=== PATIENT | female | born 1950 | race Caucasian/White ===

== ENCOUNTER 2017-09-22 04:53 | Emergency (ER) | payer OTHER ==
[~2017-09-22] VITALS: Ht 165.1 cm; Wt 64.3 kg
[2017-09-22 05:02] VITALS: Ht 165.1 cm; Wt 64.3 kg
[2017-09-22 05:12] VITALS: O2SAT 94
[2017-09-22] MEDS ORDERED: SODIUM CHLORIDE 0.9% 1000ML 1,000 ML IV STA (05:56)
--- NOTE | 2017-09-22 05:58 | EMERGENCY ROOM VISIT NOTE ---
History Report prepared by Hina: Martín Anderson Under the Supervision of: Dr. Esmer Gordon D.O. First contact with patient: 05:33 Chief Complaint: SYNCOPE (NEAR SYNCOPE) Stated Complaint: PASSED OUT IN KITCHED AT 3 History of Present Illness The patient is a 67 year old female who presents to the Emergency Room with complaints of a resolved syncopal episode that occurred 2.5 hours ago. The patient states she was experiencing nausea, diarrhea, and loss of appetite and decreased fluid intake all day yesterday. She reports she did not have blood in her stool. The patient notes she woke up to get a drink of water in the kitchen and lost consciousness. She states she woke up on the floor and was incontinent of her stool. The patient reports she does not know if she hit her head but she has no complaints of pain. She notes this has happened before, and she was told it was from a viral illness. The patient states she has a history of anxiety. She reports she drinks two beers a day and did drink them yesterday. The patient denies a history of a seizure, heart problems, lightheadedness, abdominal pain, congestion, headaches, and fevers. Source of History: patient Onset: 2.5 hours ago Quality: other (syncope) Timing: resolved Associated Symptoms: + LOC, + nausea, + diarrhea, No fevers, No headache, No abdominal pain Note: Associated symptoms: loss of appetite and fluid intake, incontinence of stool Denies: blood in stool, lightheadedness, congestion Review of Systems See HPI for pertinent positives & negatives. A total of 10 systems reviewed and were otherwise negative. Past Medical & Surgical Medical Problems: (1) Anxiety (2) Stomach problems Family History Diabetes mellitus Gallbladder disease Heart disease Hypertension Social History Smoking Status: Never Smoker Alcohol Use: occasionally Marital Status: Housing Status: lives alone Occupation Status: retired Current/Historical Medications Scheduled Venlafaxine Hcl (Effexor Xr), 75 MG PO DAILY Allergies Coded Allergies: Erythromycin (Unverified Allergy, Unknown, nausea, 09/22/17) Azithromycin (Verified Adverse Reaction, Mild, nausea, 09/22/17) Physical Exam Vital Signs Date Time Temp Pulse Resp B/P (MAP) Pulse Ox O2 Delivery O2 Flow Rate FiO2 09/22/17 07:30 37.2 74 16 109/72 96 Room Air 09/22/17 06:08 72 18 96 Room Air 09/22/17 06:01 107/68 09/22/17 05:53 68 15 93 09/22/17 05:38 70 18 92 09/22/17 05:31 110/58 09/22/17 05:29 68 09/22/17 05:25 113/63 09/22/17 05:23 70 25 91 Room Air 09/22/17 05:13 98/67 09/22/17 05:12 94 Room Air 09/22/17 05:12 73 112/64 94 76 121/71 98/67 09/22/17 05:02 37.6 79 18 90/62 93 Room Air Physical Exam HEENT: Head - normocephalic and atraumatic Pupils are equal, round, and reactive to light. Extraocular eye muscles are intact, and sclera are anicteric. Nose - moist nasal mucosa without discharge. Mouth - moist buccal mucosa. Oropharynx is nonerythematous and there is no tonsillar exudate or edema noted. Neck: Supple; no JVD, nuchal rigidity, cervical lymphadenopathy. Heart: Regular rate and rhythm. There is a normal S1 and S2 with no murmurs, clicks, or gallops appreciated. Lungs: Clear to auscultation bilaterally with no wheezes, rales, or rhonchi. Abdomen: Soft, completely nontender, nondistended, with good bowel sounds. There are no palpable pulsatile masses or hepatosplenomegaly. There is no guarding, rigidity, or rebound noted. Extremities: No evidence of cyanosis, clubbing, or edema. There are easily palpable peripheral pulses. Skin: warm and dry with good turgor and no rashes. Medical Decision & Procedures ER Provider Diagnostic Interpretation: X-ray results as stated below per interpretation by me and the radiologist: CHEST ONE VIEW PORTABLE HISTORY: syncope COMPARISON: None. FINDINGS: A few bibasilar linear densities. The lungs are otherwise clear. No pleural effusions. No pneumothorax. The heart is normal in size. No rib fractures. IMPRESSION: A few bibasilar linear densities. These are nonspecific but favor subsegmental atelectasis or scarring. Electronically signed by: Steve Mathis M.D. 09/22/2017 7:33 AM Dictated Date/Time: 09/22/2017 7:31 AM Laboratory Results 09/22/17 05:20 Red Blood Count 4.14, Mean Corpuscular Volume 98.1, Mean Corpuscular Hemoglobin 33.3, Mean Corpuscular Hemoglobin Concent 34.0, Mean Platelet Volume 9.1, Neutrophils (%) (Auto) 70.7, Lymphocytes (%) (Auto) 12.4, Monocytes (%) (Auto) 15.3, Eosinophils (%) (Auto) 1.3, Basophils (%) (Auto) 0.3, Neutrophils # (Auto ) 2.73, Lymphocytes # (Auto) 0.48, Monocytes # (Auto) 0.59, Eosinophils # (Auto ) 0.05, Basophils # (Auto) 0.01 09/22/17 05:20 Test 09/22/17 05:20 09/22/17 07:00 White Blood Count 3.86 K/uL (4.8-10.8) Red Blood Count 4.14 M/uL (4.2-5.4) Hemoglobin 13.8 g/dL (12.0-16.0) Hematocrit 40.6 % (37-47) Mean Corpuscular Volume 98.1 fL (80-100) Mean Corpuscular Hemoglobin 33.3 pg (25-34) Mean Corpuscular Hemoglobin Concent 34.0 g/dl (32-36) Platelet Count 223 K/uL (130-400) Mean Platelet Volume 9.1 fL (7.4-10.4) Neutrophils (%) (Auto) 70.7 % Lymphocytes (%) (Auto) 12.4 % Monocytes (%) (Auto) 15.3 % Eosinophils (%) (Auto) 1.3 % Basophils (%) (Auto) 0.3 % Neutrophils # (Auto) 2.73 K/uL (1.4-6.5) Lymphocytes # (Auto) 0.48 K/uL (1.2-3.4) Monocytes # (Auto) 0.59 K/uL (0.11-0.59) Eosinophils # (Auto) 0.05 K/uL (0-0.5) Basophils # (Auto) 0.01 K/uL (0-0.2) RDW Standard Deviation 47.2 fL (36.4-46.3) RDW Coefficient of Variation 13.1 % (11.5-14.5) Immature Granulocyte % (Auto) 0.0 % Immature Granulocyte # (Auto) 0.00 K/uL (0.00-0.02) Anion Gap 6.0 mmol/L (3-11) Est Creatinine Clear Calc Drug Dose 62.3 ml/min Estimated GFR () 88.3 Estimated GFR (Non- 76.2 BUN/Creatinine Ratio 16.2 (10-20) Calcium Level 8.9 mg/dl (8.5-10.1) Total Bilirubin 1.4 mg/dl (0.2-1) Direct Bilirubin 0.3 mg/dl (0-0.2) Aspartate Amino Transf (AST/SGOT) 17 U/L (15-37) Alanine Aminotransferase (ALT/SGPT) 27 U/L (12-78) Alkaline Phosphatase 97 U/L (45-117) Troponin I < 0.015 ng/ml (0-0.045) Total Protein 7.3 gm/dl (6.4-8.2) Albumin 3.8 gm/dl (3.4-5.0) Lipase 79 U/L (73-393) Urine Color YELLOW Urine Appearance CLEAR (CLEAR) Urine pH 5.5 (4.5-7.5) Urine Specific [place] 1.008 (1.000-1.030) Urine Protein NEG (NEG) Urine Glucose (UA) NEG (NEG) Urine Ketones TRACE (NEG) Urine Occult Blood TRACE (NEG) Urine Nitrite NEG (NEG) Urine Bilirubin NEG (NEG) Urine Urobilinogen NEG (NEG) Urine Leukocyte Esterase NEG (NEG) Urine WBC (Auto) 0 /hpf (0-5) Urine RBC (Auto) 0-4 /hpf (0-4) Urine Hyaline Casts (Auto) 0 /lpf (0-5) Urine Epithelial Cells (Auto) 0-5 /lpf (0-5) Urine Bacteria (Auto) NEG (NEG) Laboratory results per my review. Medications Administered Medications (Trade) Dose Ordered Sig/Archie Route Start Time Stop Time Status Last Admin Dose Admin Sodium Chloride 1,000 ml @ 999 mls/hr Q1H1M STAT IV 09/22/17 05:56 09/22/17 06:56 DC 09/22/17 06:03 999 MLS/HR Procedure 0556: Ordered Sodium Chloride 1000 ml @ 999 mls/hr IV. ECG Per My Interpretation Indication: syncope Rate (beats per minute): 68 Rhythm: normal sinus Findings: no acute ischemic change, no ectopy ED Course 0531: Past medical records reviewed. The patient was evaluated in room B05 by the medical student under my supervision. 0556: Ordered Sodium Chloride 1000 ml @ 999 mls/hr IV. 0559: The patient was evaluated in room B05 by me. A complete history and physical examination were performed. Nursing notes were reviewed. IV lock was established and labs were drawn as above. A 12-lead EKG was obtained as described above. The patient was essentially symptom-free on my exam. 0701: Upon reevaluation, patient is felling well. She ambulated, ate, and drank without difficulty. I discussed findings and results with her. She verbalized agreement of the treatment plan. The patient was discharged home. Medical Decision The patient is a 67 year old female who presents to the ED after a syncopal episode. Differential diagnosis includes dehydration, cardiac dysrhythmia, vasovagal syncope, electrolyte imbalance, orthostasis. Lab results show: WBC of 3.8, stable H&H, glucose of 110, normal lipase, normal renal function, total bilirubin of 1.4, direct bilirubin of 0.3, normal transaminases. This is a 67-year-old female patient had a syncopal event at home. The patient has been suffering from an acute diarrheal illness over the past 12 hours. The patient shows no evidence of orthostasis here in the emergency department. She is symptom-free at the time of my evaluation. She has had a previous episode of syncope associated with a another diarrheal illness while she was on a cruise ship years ago. The patient is able to eat and drink without difficulty. She is feeling better at the time of discharge. I have asked her to rest and take a bland diet over the next couple of days. She will need to increase her fluid intake. If she has any further episodes of lightheadedness or syncope, she will need to follow-up with her PCP. Impression Primary Impression: Syncope Additional Impression: Diarrhea Scribe Attestation The scribe's documentation has been prepared under my direction and personally reviewed by me in its entirety. I confirm that the note above accurately reflects all work, treatment, procedures, and medical decision making performed by me. Departure Information Dispostion Home / Self-Care Referrals Boni Bunn D.O. (PCP) Forms HOME CARE DOCUMENTATION FORM, IMPORTANT VISIT INFORMATION Patient Instructions ED Syncope Vasovagal, [facility], Syncope Causes, Syncope Dx Additional Instructions Rest. take plenty of clear liquids Move slowly. Follow up with PCP later today for a recheck. You may continue to use anti-diarrheal meds return to the ER for further episodes of passing out Problem Qualifiers Primary Impression: Syncope Syncope type: unspecified Qualified Codes: R55 - Syncope and collapse Additional Impression: Diarrhea Diarrhea type: unspecified type Qualified Codes: R19.7 - Diarrhea, unspecified
[2017-09-22 06:03] LABS: BASO % 0.3 %; BASO ABS # 0.01 K/uL (0-0.2); EOS % 1.3 %; EOS ABS # 0.05 K/uL (0-0.5); HEMATOCRIT 40.6 % (37-47); HEMOGLOBIN 13.8 g/dL (12.0-16.0); LYMPH % 12.4 %; LYMPH ABS # 0.48 K/uL (1.2-3.4); MEAN CELL VOLUME 98.1 fL (80-100); MEAN CORPUSCULAR HEMOGLOBIN 33.3 pg (25-34); MEAN PLATELET VOLUME 9.1 fL (7.4-10.4); MONO % 15.3 %; MONO ABS # 0.59 K/uL (0.11-0.59); NEUT % 70.7 %; NEUT ABS # 2.73 K/uL (1.4-6.5); PLATELET COUNT 223 K/uL (130-400); RED CELL DISTRIBUTION WIDTH CV 13.1 % (11.5-14.5); RED CELL DISTRIBUTION WIDTH SD 47.2 fL (36.4-46.3); WHITE BLOOD COUNT 3.86 K/uL (4.8-10.8)
[2017-09-22 06:12] LABS: ALBUMIN 3.8 gm/dl (3.4-5.0); ALT/SGPT 27 U/L (12-78); AST/SGOT 17 U/L (15-37); BLOOD UREA NITROGEN 13 mg/dl (7-18); CALCIUM 8.9 mg/dl (8.5-10.1); CARBON DIOXIDE 26 mmol/L (21-32); CREATININE 0.81 mg/dl (0.60-1.20); GLUCOSE 110 mg/dl (70-99); LIPASE 79 U/L (73-393); POTASSIUM 3.9 mmol/L (3.5-5.1); SODIUM 136 mmol/L (136-145)
[2017-09-22 06:17] LABS: ALKALINE PHOSPHATASE 97 U/L (45-117); TOTAL PROTEIN 7.3 gm/dl (6.4-8.2)
[2017-09-22] MEDS ORDERED: VENL75CA PO (06:55)
[2017-09-22 07:30] VITALS: BP 109/72; PULSE 74; TEMP 37.2; O2SAT 96
--- NOTE | 2017-09-22 07:34 | DIAGNOSTIC IMAGING REPORT ---
CHEST ONE VIEW PORTABLE HISTORY: syncope COMPARISON: None. FINDINGS: A few bibasilar linear densities. The lungs are otherwise clear. No pleural effusions. No pneumothorax. The heart is normal in size. No rib fractures. IMPRESSION: A few bibasilar linear densities. These are nonspecific but favor subsegmental atelectasis or scarring. Electronically signed by: Steve Mathis M.D. 09/22/2017 7:33 AM Dictated Date/Time: 09/22/2017 7:31 AM
== END 2017-09-22 07:38 | disposition home or self-care (01) ==
LOC: C.EDB 04:56
DX: R55 Syncope and collapse (principal); R19.7 Diarrhea, unspecified; F41.9 Anxiety disorder, unspecified; Z83.3 Family history of diabetes mellitus; Z82.49 Family history of ischemic heart disease and other diseases of the circulatory system; Z88.8 Allergy status to other drugs, medicaments and biological substances